=== PATIENT | female | born 1970 | race Caucasian/White ===

== ENCOUNTER 2022-05-10 07:26 | Emergency (ER) | payer OTHER ==
[2022-05-10 08:12] LABS: BASOPHIL 0.5 % (0-2); HCT 43.2 % (37.0-47.0); HGB 14.6 g/dl (12.5-16.0); LYMPHOCYTE 13.2 % (15-48); MCH 30.9 pg (25.0-31.0); MCHC 33.8 g/dL (32.0-36.0); MCV 91.5 fL (78.0-100.0); MONOCYTE 5.3 % (0-12); MPV 9.8 fL (6.0-9.5); NEUTROPHIL 38.3 % (41-80); NRBC 0; PLT 235 K/uL (150-400); RBC 4.72 M/uL (4.20-5.40); RDW 13.6 % (11.5-14.0); WBC 18.6 K/uL (4.0-10.5)
[2022-05-10 08:20] LABS: EOSINOPHIL 42.3 % (0-5)
[2022-05-10 08:29] LABS: ALBUMIN 3.3 g/dL (3.4-5.0); ALKALINE PHOSHATASE 87 U/L (46-116); ALT 31 U/L (14-59); AST 13 U/L (15-37); BILIRUBIN - TOTAL 0.7 mg/dL (0.2-1.0); BUN 16 mg/dL (7-18); BUN/CREAT RATIO (CALC) 23.9 RATIO; C-REACTIVE PROTEIN <0.20 mg/dL (<=0.90); CHLORIDE 100 mmol/L (98-107); CO2 (BICARBONATE) 28 mmol/L (21-32); CREATININE 0.67 mg/dL (0.51-0.95); GLOBULIN (CALCULATION) 3.8 g/dL; GLUCOSE 90 mg/dL (74-106); POTASSIUM 3.8 mmol/L (3.5-5.1); TOTAL PROTEIN 7.1 g/dL (6.4-8.2)
[2022-05-10 08:55] LABS: CORONAVIRUS 2019 SARS-COV-2 NEGATIVE (NEGATIVE); INFLUENZA A NAA NEGATIVE (NEGATIVE)
[2022-05-10] MEDS ORDERED: DUONEB 2.5-0.5M1 AMP INH (10:31)
[2022-05-10] MEDS ORDERED: VIBRAMYCIN100 MG PO (10:31)
[2022-05-11] MEDS ORDERED: PREDNISONE 20MG20 MG PO (22:43)
== END 2022-05-10 10:44 | disposition home or self-care (01) ==
LOC: FER 07:26
PROVIDERS: Emergency Medicine
DX: J45.901 Unspecified asthma with (acute) exacerbation (principal); J18.9 Pneumonia, unspecified organism; Z88.1 Allergy status to other antibiotic agents; Z88.0 Allergy status to penicillin; Z20.822 Contact with and (suspected) exposure to COVID-19
CPT/HCPCS: 36415; 36600; 71275; 80053; 82803; 84484; 85025; 86140; 93005; J2930; Q9967; U0002

== ENCOUNTER 2022-05-11 18:03 | Emergency (ER) | payer OTHER ==
[~2022-05-11 18:03] MED LIST: DUONEB 2.5-0.5M1 AMP INH; VIBRAMYCIN100 MG PO
[2022-05-11] MEDS ORDERED: PREDNISONE 20MG20 MG PO (22:43)
== END 2022-05-11 23:13 | disposition home or self-care (01) ==
LOC: FER 18:03
DX: R06.02 Shortness of breath (principal); R05.9 Cough, unspecified; I25.10 Atherosclerotic heart disease of native coronary artery without angina pectoris; Z88.1 Allergy status to other antibiotic agents
CPT/HCPCS: 94640; 94664; J1100

== ENCOUNTER 2022-05-15 06:30 | Inpatient (IN) | payer OTHER ==
[~2022-05-15] VITALS: Ht 165.1 cm; Wt 112.7 kg
[~2022-05-15 06:30] MED LIST changes: +PREDNISONE 20MG20 MG PO
[2022-05-15 06:55] LABS: BASOPHIL 0.8 % (0-2); HCT 44.3 % (37.0-47.0); HGB 14.6 g/dl (12.5-16.0); LYMPHOCYTE 17.9 % (15-48); MCH 30.9 pg (25.0-31.0); MCV 93.9 fL (78.0-100.0); MONOCYTE 7.3 % (0-12); MPV 9.7 fL (6.0-9.5); NEUTROPHIL 44.3 % (41-80); NRBC 0; PLT 259 K/uL (150-400); RBC 4.72 M/uL (4.20-5.40); RDW 13.7 % (11.5-14.0); WBC 17.1 K/uL (4.0-10.5)
[2022-05-15 08:00] LABS: ALBUMIN 3.4 g/dL (3.4-5.0); BILIRUBIN - TOTAL 0.4 mg/dL (0.2-1.0); BUN/CREAT RATIO (CALC) 22.5 RATIO; CREATININE 0.71 mg/dL (0.51-0.95); MAGNESIUM 2.1 mg/dL (1.8-2.4); POTASSIUM 3.7 mmol/L (3.5-5.1); TOTAL PROTEIN 7.4 g/dL (6.4-8.2)
[2022-05-15 08:01] LABS: LACTIC ACID 1.2 mmol/L (0.4-1.9)
[2022-05-15 08:17] LABS: CORONAVIRUS 2019 SARS-COV-2 NEGATIVE (NEGATIVE); INFLUENZA A NAA NEGATIVE (NEGATIVE)
--- NOTE | 2022-05-15 10:57 | NUR ---
PT TRANSPORTED TO ICU 2 ON VENTURI MASK. PT AMBULATED FROM STRETCHER TO BED INDEPENDENTLY. RT SWITCHED PT BACK TO BIPAP MASK, O2 SAT 100%. ADMITTING VITALS WERE 139/94 (104) SINUS TACH HR 116 RR 23 AFEBRILE. LEAD NET SOFTWARE DEVELOPER ORDERED 5MG VALIUM UPON ARRIVAL ANHD SOLU-MEDROL 62.5 MG. PT APPEARS TO BE RELAXED AND RESTING IN BED WITH EYES CLOSED. IS AT BEDSIDE AT THIS TIME.
--- NOTE | 2022-05-15 12:08 | NUR ---
PT SWITCHED FROM BIPAP TO 4L NC PER MD.
[2022-05-15 13:40] LABS: BILIRUBIN NEGATIVE (NEGATIVE); BLOOD NEGATIVE Ery/uL (NEGATIVE); CLARITY CLEAR (CLEAR); COLOR YELLOW (YELLOW); GLUCOSE (U) NORMAL (NORMAL); LEUKOCYTES NEGATIVE Leu/uL (NEGATIVE); NITRITE NEGATIVE (NEGATIVE); PROTEIN NEGATIVE (NEGATIVE); UROBILINOGEN 0.2 mg/dL (0.2-1.0)
[2022-05-15 15:02] LABS: URINARY WBC RARE
[2022-05-15 15:03] LABS: BACTERIA TRACE
[2022-05-15 20:17] LABS: B. PERTUSSIS DNA NOT DETECTED (NOT DETECT); CORONAVIRUS 229E NOT DETECTED (NOT DETECT); CORONAVIRUS HKU1 NOT DETECTED (NOT DETECT); CORONAVIRUS NL63 NOT DETECTED (NOT DETECT); CORONAVIRUS OC43 NOT DETECTED (NOT DETECT); HUMAN METAPNEUMO NOT DETECTED (NOT DETECT); INFLUENZA A NOT DETECTED (NOT DETECT); INFLUENZA A 2009 H1N1 NOT DETECTED (NOT DETECT); INFLUENZA A H1 NOT DETECTED (NOT DETECT); INFLUENZA A H3 NOT DETECTED (NOT DETECT); INFLUENZA B NOT DETECTED (NOT DETECT); MYCOPLASMA PNEUMONIAE NOT DETECTED (NOT DETECT); PARAINFLUENZA 1 NOT DETECTED (NOT DETECT); PARAINFLUENZA 2 NOT DETECTED (NOT DETECT); PARAINFLUENZA 3 NOT DETETED (NOT DETECT); PARAINFLUENZA 4 NOT DETECTED (NOT DETECT); RESPIRATORY SYNCYTIAL VIRUS NOT DETECTED (NOT DETECT)
[2022-05-15 20:18] LABS: CHLAMYDOPHILA PNEUMON DNA PCR NOT DETECTED (NOT DETECT); CORONAVIRUS 2019 PCR NOT DETECTED (NOT DETECTD)
[2022-05-16 06:56] LABS: BASOPHIL 0.2 % (0-2); EOSINOPHIL 0 % (0-5); LYMPHOCYTE 6.8 % (15-48); MCH 30.4 pg (25.0-31.0); MCHC 32.5 g/dL (32.0-36.0); MCV 93.5 fL (78.0-100.0); MONOCYTE 4.1 % (0-12); MPV 9.8 fL (6.0-9.5); NRBC 0; PLT 261 K/uL (150-400); RBC 4.28 M/uL (4.20-5.40); RDW 13.7 % (11.5-14.0)
[2022-05-16 06:58] LABS: WBC 24.1 K/uL (4.0-10.5)
[2022-05-16 07:14] LABS: ALBUMIN 3.2 g/dL (3.4-5.0); BILIRUBIN - TOTAL 0.3 mg/dL (0.2-1.0); BUN/CREAT RATIO (CALC) 32.1 RATIO; CREATININE 0.53 mg/dL (0.51-0.95); GLOBULIN (CALCULATION) 3.5 g/dL; MAGNESIUM 2.3 mg/dL (1.8-2.4); POTASSIUM 4.6 mmol/L (3.5-5.1); TOTAL PROTEIN 6.7 g/dL (6.4-8.2)
--- NOTE | 2022-05-16 11:36 | NUR ---
05/16/22 Ms. Dunlap lives at home with her spouse. 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 They are able to meet their financial obligations. - Ms. Dunlap reports to experience mild anxiety. She denies suicidal ideations, intentions, or attempts. - Will monitor for 02 needs.
[2022-05-16] MEDS ORDERED: FLUOXETINE HCL20 MG PO (14:29)
[2022-05-16] MEDS ORDERED: ANORO ELLIPTA1 EACH PO (14:30)
[2022-05-16] MEDS ORDERED: SINGULAIR10 MG PO (14:32)
[2022-05-17 05:40] LABS: HCT 39.3 % (37.0-47.0); HGB 12.5 g/dl (12.5-16.0); MCH 30.4 pg (25.0-31.0); MCHC 31.8 g/dL (32.0-36.0); MCV 95.6 fL (78.0-100.0); MPV 10.1 fL (6.0-9.5); RBC 4.11 M/uL (4.20-5.40); RDW 13.9 % (11.5-14.0); WBC 20.5 K/uL (4.0-10.5)
[2022-05-17 06:32] LABS: BUN/CREAT RATIO (CALC) 37.3 RATIO; CREATININE 0.67 mg/dL (0.51-0.95)
[2022-05-17] MEDS ORDERED: VENTOLIN (2.5 MG/3 M INH (07:27)
[2022-05-17] MEDS ORDERED: PREDNISONE 20MG20 MG PO (07:27)
[2022-05-17] MEDS ORDERED: SACCHAROMYCES250 MG PO (07:27)
[2022-05-17] MEDS ORDERED: AZITHROMYCIN250 MG PO (07:27)
--- NOTE | 2022-05-17 09:23 | NUR ---
05/17 A referral was made to [facility] for 02 at 2L.
--- NOTE | 2022-05-17 10:40 | NUR ---
PT DC TO HOME WITH , OXYGEN DELIVERED FROM [facility], IVS REMOVED. PT STABLE AT TIME OF DC.BELONGINGS SENT HOME WITH HER
== END 2022-05-17 10:20 | disposition home or self-care (01) | DRG 871 ==
LOC: FER 06:30 → FICU 08:01
PROVIDERS: Emergency Medicine; Internal Medicine; Nurse Practitioner; ADMIT Family Medicine
PROC: 3E03329 Introduction of Other Anti-infective into Peripheral Vein, Percutaneous Approach (ICD-10-PCS; principal; 2022-05-15)
PROC: 5A09357 Assistance with Respiratory Ventilation, Less than 24 Consecutive Hours, Continuous Positive Airway Pressure (ICD-10-PCS; 2022-05-15)
DX: A41.9 Sepsis, unspecified organism (principal); J18.9 Pneumonia, unspecified organism; J96.01 Acute respiratory failure with hypoxia; J45.901 Unspecified asthma with (acute) exacerbation; N17.9 Acute kidney failure, unspecified; Z68.41 Body mass index [BMI] 40.0-44.9, adult; R65.20 Severe sepsis without septic shock; Z20.822 Contact with and (suspected) exposure to COVID-19; I10 Essential (primary) hypertension; R73.9 Hyperglycemia, unspecified; E66.01 Morbid (severe) obesity due to excess calories; F41.9 Anxiety disorder, unspecified; F32.A Depression, unspecified; T38.0X5A Adverse effect of glucocorticoids and synthetic analogues, initial encounter; Z90.49 Acquired absence of other specified parts of digestive tract; Z83.6 Family history of other diseases of the respiratory system; Z90.710 Acquired absence of both cervix and uterus; Z88.0 Allergy status to penicillin; Z88.1 Allergy status to other antibiotic agents; Z79.899 Other long term (current) drug therapy
CPT/HCPCS: 36415; 36600; 71045; 71275; 80048; 80053; 81001; 82103; 82785; 82803; 83036; 83605; 83735; 84145; 84484; 85025; 87040; 87070; 87205; 93005; 94010; 94640; 94660; 94667; 94668; J0456; J0692; J1650; J2930; J3360; J3475; J7030; J7050; J7512; U0002